=== PATIENT | female | born 1945 | race American Indian/Alaskan Native ===

== ENCOUNTER 2018-07-11 06:42 | Day surgery (SDC) | payer MEDICARE ==
[~2018-07-11] VITALS: Ht 167.6 cm; Wt 69.2 kg
[~2018-07-11 06:42] MED LIST: ALLO100 PO; BUPR150ER PO; CARI350 PO; CLON1 PO; DILT120 PO; FEXO60 PO; LEVSOD112 PO; LEVSOD88 PO; LORA.5 PO; LOSA50 PO; METO100 PO; METO50 PO; MONT10T PO; OMEP20ER PO; PROP10 PO; PROP60 PO; TOLT4 PO; TRAM50 PO
[2018-07-11] MEDS ORDERED: ASPI325 (07:18)
[2018-07-11] MEDS ORDERED: ASPI81CH (07:18)
== END 2018-07-11 08:37 | disposition home or self-care (01) ==
LOC: ORSCSDS 06:42
PROVIDERS: Ophthalmology
PROC: 08RJ3JZ Replacement of Right Lens with Synthetic Substitute, Percutaneous Approach (ICD-10-PCS; principal; 2018-07-11 07:30)
DX: H25.11 Age-related nuclear cataract, right eye (principal); I10 Essential (primary) hypertension; E03.9 Hypothyroidism, unspecified; K21.9 Gastro-esophageal reflux disease without esophagitis; Z79.899 Other long term (current) drug therapy
CPT/HCPCS: J2001; J2250; J3010; J3301; J7120; V2632

== ENCOUNTER 2019-06-17 07:28 | Emergency (ER) | payer MEDICARE, OTHER ==
[~2019-06-17] VITALS: Ht 167.6 cm; Wt 63.5 kg
[~2019-06-17 07:28] MED LIST changes: +ASPI325; +ASPI81CH
[2019-06-17] MEDS ORDERED: PLAVIX75 MG (07:43)
[2019-06-17] MEDS ORDERED: Inderal60 MG PO (07:44)
[2019-06-17] MEDS ORDERED: Ultram50 MG PO (10:13)
== END 2019-06-17 10:48 | disposition home or self-care (01) ==
LOC: ER 07:28
DX: G43.909 Migraine, unspecified, not intractable, without status migrainosus (principal); I10 Essential (primary) hypertension; E03.9 Hypothyroidism, unspecified; Z86.73 Personal history of transient ischemic attack (TIA), and cerebral infarction without residual deficits; Z88.8 Allergy status to other drugs, medicaments and biological substances; Z91.018 Allergy to other foods; Z88.0 Allergy status to penicillin; Z88.5 Allergy status to narcotic agent; Z88.2 Allergy status to sulfonamides; Z79.899 Other long term (current) drug therapy; Z79.82 Long term (current) use of aspirin; Z79.891 Long term (current) use of opiate analgesic
CPT/HCPCS: 96361; 96374; 96375; 99283-25; J1100; J1885; J2405; J3010; J7030

== ENCOUNTER 2020-04-14 14:49 | Emergency (ER) | payer MEDICARE ==
[~2020-04-14] VITALS: Ht 167.6 cm; Wt 47.6 kg
[~2020-04-14 14:49] MED LIST changes: +Inderal60 MG PO; +PLAVIX75 MG; +Ultram50 MG PO
[2020-04-14] MEDS ORDERED: TOPI25 PO (15:54)
[2020-04-14] MEDS ORDERED: LORA.5 PO (15:55)
[2020-04-14] MEDS ORDERED: BUPROPION HCL200 M1 PO (15:56)
[2020-04-14] MEDS ORDERED: Oxcarbazepine150 MG PO (15:56)
[2020-04-14] MEDS ORDERED: TOLTERODINE TART2 MG PO (15:56)
[2020-04-14] MEDS ORDERED: OMEPRAZOLE MAGN20 M1 PO (15:57)
[2020-04-14] MEDS ORDERED: IBUP400 PO (16:23)
== END 2020-04-14 17:16 | disposition home or self-care (01) ==
LOC: ER 14:49
DX: R51 Headache (principal); M54.2 Cervicalgia; I10 Essential (primary) hypertension; E03.9 Hypothyroidism, unspecified; Z88.8 Allergy status to other drugs, medicaments and biological substances; Z88.0 Allergy status to penicillin; Z88.5 Allergy status to narcotic agent; Z91.041 Radiographic dye allergy status; Z88.2 Allergy status to sulfonamides; Z79.82 Long term (current) use of aspirin; Z79.899 Other long term (current) drug therapy; Z79.02 Long term (current) use of antithrombotics/antiplatelets; Z86.73 Personal history of transient ischemic attack (TIA), and cerebral infarction without residual deficits; Z87.891 Personal history of nicotine dependence
CPT/HCPCS: 36415; 70450; 96374; 96375; 99284-25; J0780; J1885; J7030

== ENCOUNTER → 2020-08-10 | Outpatient (CLI) | payer MEDICARE ==
[~2020-08-10] MED LIST changes: +ALLOPURINOL100 M1 PO; +Aspir 8181 MG PO; +BUPROPION HCL200 M1 PO; +BUSP5 PO; +CARV3.125 PO; +DILTIAZEM 24HR180 M5 PO; +EUTHYROX75 MC1 PO; +FAMO10 PO; +FURO20 PO; +Flovent 44 mc10.6 GM INH; +IBUP400 PO; +LOSA25 PO; +OMEPRAZOLE MAGN20 M1 PO; +Oxcarbazepine150 MG PO; +PLAVIX75 MG PO; +POTA20LUD PO; +SPIR25 PO; +TOLTERODINE TART2 MG PO; +TOPI25 PO
[2020-08-10 19:23] LABS: Appearance, Urine Cloudy (Clear); Bilirubin, Urine Neg (Neg); Blood, Urine Neg (Neg); Color, Urine Yellow (P-Yellow); Glucose Qualitative, Urine Neg (Neg); Ketones, Urine 1+ (Neg); Leukocyte Esterase, Urine 1+ (Neg); Nitrite, Urine Pos (Neg); Protein, Urine Neg (Neg); Urobilinogen, Urine NORM (Normal)
[2020-08-10 19:45] LABS: Bacteria Many /hpf; Squamous Epithelial Cells Few /hpf (Few)
== END | disposition home or self-care (01) ==
LOC: LAB SHORT 19:10 → LAB 19:10
PROVIDERS: Family Medicine
DX: R62.7 Adult failure to thrive (principal); R63.5 Abnormal weight gain; K08.89 Other specified disorders of teeth and supporting structures
CPT/HCPCS: 81001; 87077; 87086; 87186

== ENCOUNTER → 2020-08-18 | Outpatient (CLI) | payer MEDICARE, OTHER ==
[2020-08-18 17:32] LABS: Alanine Aminotransfer (ALT/SGP 14 U/L (12-78); Albumin, Blood 3.2 g/dL (3.4-5.0); Albumin/Globulin Ratio 1.1 (0.8-1.8); Alk Phos 72 U/L (50-136); Anion Gap 5 mmol/L (6-16); Aspartate Aminotrans (AST/SGOT 11 U/L (12-37); Bilirubin, Total 0.3 mg/dL (0.1-1.0); Blood Urea Nitrogen 14 mg/dL (8-24); Bun/Creatinine Ratio 21.2 (12.0-20.0); CO2, Blood 26 mmol/L (21-32); Calcium, Blood 8.5 mg/dL (8.5-10.1); Chloride, Blood 111 mmol/L (98-108); Creatinine, Blood 0.66 mg/dL (0.40-1.00); Globulin, Blood 2.8 g/dL (2.2-4.0); Glomerular Filtration Rate >60 (60-); Glucose, Blood 98 mg/dL (70-99); Potassium, Blood 4.2 mmol/L (3.5-5.5); Sodium, Blood 142 mmol/L (136-145)
== END | disposition home or self-care (01) ==
LOC: LAB 14:00 → LAB SHORT 14:00
PROVIDERS: Family Medicine
DX: R62.7 Adult failure to thrive (principal); R63.5 Abnormal weight gain; K08.9 Disorder of teeth and supporting structures, unspecified
CPT/HCPCS: 80053

== ENCOUNTER 2020-12-01 16:15 | Inpatient (IN) | payer MEDICARE, SELFPAY ==
[~2020-12-01] VITALS: Ht 167.6 cm; Wt 44.0 kg
[~2020-12-01 16:15] MED LIST changes: -ALLOPURINOL100 M1 PO; -Aspir 8181 MG PO; -BUSP5 PO; -CARV3.125 PO; -DILTIAZEM 24HR180 M5 PO; -EUTHYROX75 MC1 PO; -FAMO10 PO; -FURO20 PO; -Flovent 44 mc10.6 GM INH; -LOSA25 PO; -PLAVIX75 MG PO; -POTA20LUD PO; -SPIR25 PO
[2020-12-01 18:15] LABS: BASOPHILS ABSOLUTE AUTO 0.04 K/mm3 (0.00-0.23); BASOPHILS PERCENT AUTO 1 % (0-2); EOSINOPHILS ABSOLUTE AUTO 0.12 K/mm3 (0.00-0.68); EOSINOPHILS PERCENT AUTO 2 % (0-6); Hemoglobin 13.6 g/dL (11.5-16.0); IMMATURE GRAN ABSOLUTE AUTO 0.02 K/mm3 (0.00-0.10); IMMATURE GRAN PERCENT AUTO 0 % (0-1); LYMPHOCYTES ABSOLUTE AUTO 2.43 K/mm3 (0.84-5.20); LYMPHOCYTES PERCENT AUTO 35 % (21-46); MONOCYTES ABSOLUTE AUTO 0.55 K/mm3 (0.16-1.47); MONOCYTES PERCENT AUTO 8 % (4-13); Mean Corpuscular HGB 33.3 pg (26.0-34.0); Mean Corpuscular HGB Conc 35.8 g/dL (31.5-36.5); Mean Corpuscular Volume 93 fL (80-100); Mean Platelet Volume 10.6 fL (9.1-12.4); NEUTROPHILS ABSOLUTE AUTO 3.88 K/mm3 (1.96-9.15); NEUTROPHILS PERCENT AUTO 55 % (41-73); Platelet Count 242 K/mm3 (150-400); RDW Coefficient Variation 13.3 % (11.7-14.2); RDW Standard Deviation 45.4 fL (35.1-46.3); Red Blood Cell Count 4.08 M/mm3 (3.80-5.20); White Blood Cell Count 7.04 K/mm3 (4.00-11.30)
[2020-12-01 18:44] LABS: Alanine Aminotransfer (ALT/SGP 13 U/L (12-78); Albumin, Blood 3.7 g/dL (3.4-5.0); Albumin/Globulin Ratio 1.1 (0.8-1.8); Alk Phos 87 U/L (50-136); Anion Gap 6 mmol/L (6-16); Aspartate Aminotrans (AST/SGOT 14 U/L (12-37); Bilirubin, Total 0.6 mg/dL (0.1-1.0); Blood Urea Nitrogen 14 mg/dL (8-24); Bun/Creatinine Ratio 14.6 (12.0-20.0); CO2, Blood 23 mmol/L (21-32); Chloride, Blood 111 mmol/L (98-108); Creatinine, Blood 0.96 mg/dL (0.40-1.00); Globulin, Blood 3.4 g/dL (2.2-4.0); Glomerular Filtration Rate >60 (60-); Glucose, Blood 104 mg/dL (70-99); Potassium, Blood 3.8 mmol/L (3.5-5.5); Sodium, Blood 140 mmol/L (136-145); Total Protein, Blood 7.1 g/dL (6.4-8.2); Troponin I 0.038 ng/mL (0.000-0.040)
[2020-12-01] MEDS ORDERED: TOPI25 PO ×2 (21:25)
[2020-12-01] MEDS ORDERED: PLAVIX75 MG PO (21:26)
[2020-12-01] MEDS ORDERED: Flovent 44 mc10.6 GM INH (21:26)
[2020-12-01] MEDS ORDERED: MONT10T PO (21:26)
[2020-12-01] MEDS ORDERED: DILTIAZEM 24HR180 M5 PO (21:27)
[2020-12-01] MEDS ORDERED: ALLOPURINOL100 M1 PO (21:27)
[2020-12-01] MEDS ORDERED: POTA20LUD PO (21:29)
[2020-12-01] MEDS ORDERED: EUTHYROX75 MC1 PO (21:47)
[2020-12-02 05:39] LABS: Bun/Creatinine Ratio 14.9 (12.0-20.0); Calcium, Blood 8.4 mg/dL (8.5-10.1); Creatinine, Blood 1.01 mg/dL (0.40-1.00); Potassium, Blood 3.2 mmol/L (3.5-5.5)
--- NOTE | 2020-12-02 06:27 | NUR ---
Rn summary: Patient was admitted to room 336 via stretcher at 2248. Pt was able to walk from stretcher to bed with SBA. Patient skin is free of breakdown. Pt is alert and oriented x3. Pt was able to review meds and give health history. Patient lung sounds are clear, no crackles heard. Heart tones a little tachy. Patient has no edema. Pt was hungry and snack was given. Pt did receive tylenol 650 mg for headache and ativan 0.5 mg for anxiety with good relief and has rested well. Bed alarm is on, Patient did get up without calling to BR x2, then started calling due to alarm going off. Call light remains in reach. Will continue to monitor.
[2020-12-02 07:48] LABS: Troponin I 0.048 ng/mL (0.000-0.040)
--- NOTE | 2020-12-02 11:08 | NUR ---
Echocardiogram performed.
--- NOTE | 2020-12-02 13:24 | NUR ---
SOB THE PT REPORTED THAT SHE DID'NT FEEL GOOD AFTER GETTING UP TO GO TO THE BATHROOM, THE PT DENIED NAUSEA BUT FELT SOB, O2 WAS APPLIED @ 2L/MIN
--- NOTE | 2020-12-02 18:11 | NUR ---
PT IS A/OX3, PLEASANT AND COOPERATIVE IN THE AM, THE PT IS UP IND TO THE BATHROOM APPEARS STEADY ON HER FEET, THIS AFTERNOON THE PT REPORTED THAT SHE WASN'T FEELING WELL AFTER GETTING UP TO THE BATHROOM, THE PT DENIED NAUSEA AT THAT TIME AND O2 WAS APPLIED, THE PT REPORTED THAT IT HELPED. LATER THE PT REPORTED THAT SHE FELT OVERLY ANXIOUS AND ASKED FOR ATIVAN FOR ANXIETY SHE TAKES AT HOME, DR. RESTREPO WAS CALLED AND AN ORDER WAS GIVEN FOR ATIVAN. WHILE THE PT WAS GETTING HER INJECTION FOR THE RESTING PORTION OF HER STRESS TEST THE PT BECAME NAUSEATED AND DR. SINGLETARY WAS CALLED AND AN ORDER FOR ZOFRAN WAS GIVEN, THE PT REPORTS FEELING A LITTLE BETTER, HOWEVER STILL HAS NO APPETITE, THE PTS DAUGHTER IS AT THE BEDSIDE, CALL LIGHT IN REACH, WILL CONTINUE TO MONITOR AND ASSESS FOR CHANGES
[2020-12-03 06:23] LABS: Anion Gap 7 mmol/L (6-16); Blood Urea Nitrogen 17 mg/dL (8-24); Bun/Creatinine Ratio 14.8 (12.0-20.0); CHOL/HDL RATIO 4.7; CO2, Blood 23 mmol/L (21-32); Calcium, Blood 8.9 mg/dL (8.5-10.1); Chloride, Blood 109 mmol/L (98-108); Cholesterol 159 mg/dL (50-200); Creatinine, Blood 1.15 mg/dL (0.40-1.00); Glomerular Filtration Rate 49 (60-); Glucose, Blood 106 mg/dL (70-99); HDL Cholesterol 34 mg/dL (>39); LDL/HDL RATIO 3.2; Low Density Lipoprotein Chol 109 mg/dL (0-110); Potassium, Blood 4.1 mmol/L (3.5-5.5); Sodium, Blood 139 mmol/L (136-145); Triglycerides 80 mg/dL (30-160); Very Low Density Lipoprot Chol 16 mg/dL (6-32)
--- NOTE | 2020-12-03 06:38 | NUR ---
SHIFT SUMMARY- PT. A&O, INDEP IN ROOM. NO COMPLAINTS DURING THE NIGHT. THIS AM REPORTED HAVING CARMONA, MEDICATED PER EMAR. PT. NPO FOR 2ND PART OF STRESS TODAY. NO OTHER NEEDS DURING THE NIGHT. ASLEEP MOST OF THE NIGHT, NO APPARENT DISTRESS NOTED. CALL LIGHT WITHIN REACH AND SIDE RAILS UPX2. WILL CONT TO MONITOR.
--- NOTE | 2020-12-03 15:30 | NUR ---
Palliative Care referral and status report received from [facility] charged RN. Visit made to for advanced care planning, goals of care and support to pt in light of new diagnoses of severe late stage acute CHF. Pt has PMH of CAD with a 1VCABG in 1996. She reports no s/s or cardiac issues during the past 20+ years since CABG. She presented to the ER with 2-3 week hx of increased weak- ness, fatigue and sob. Echo demonstrated current EF of 20-25%. Her previous echo, done in 2012 showed EF of 65%. Pt states her sob is much improved since admission and she is currently minimally dyspnic on RA. She is very thin and frail appearing but does not appear older than her age of 75. She tells me about a daughter with END stage heart failure, recommended for hospice two years ago, due to "drug use and lifestyle choices" per pt. Pt was tearful when talking about her orlin. Magaly lives with a different orlin, who can help her at home. She asked questions about her CHF and "how bad is it". I spoke to her about her EF, what normal looks like, what can be done to manage s/s and improve quality of life. She was receptive to reading about CHF and also advanced care planning and I brought her literature on both to review tonight and discuss further tomorrow. Pt is a DNR so I did not discuss code status specifically with her. We did discuss hospice briefly as an option in the future, depending on her goals of care. Plan to f/u with Magaly in the am for a supportive and listening visit. Will call her orlin to answer her questions also if she would like me to.
--- NOTE | 2020-12-03 15:59 | NUR ---
Patient is immediately shares about her current medical issues and mentions about the stressors in her life, She then talks at length about what those stressors. She shares about her family unit complications, her fears and about her monica in [employer]. I normalize her experience and provide therapeutic listening and a calming presence. I will continue to remain available to patient and family.
--- NOTE | 2020-12-03 17:49 | NUR ---
PT IS A/OX4, SLOW TO RESPOND AT TIMES. THE PT APPEARS TO BE BREATHING EASIY AT REST SOB WITH EXCERTION, THE PT HAD THE SECOND PORTION OF HER STRESS TODAY, PT TOLERATED IT WELL, THE PT WAS NAUSEATED THIS AM AND WAS GIVEN ZOFRAN, THE PT REPORTED HEARTBURN THIS AFTERNOON DR. SINGLETARY WAS CALLED AND NEW ORDER FOR PEPCID WAS GIVEN, THE PT WAS MEDICATED FOR CARMONA WITH TYLENOL, THE PTS DAUGHTER IS AT THE BEDSIDE, PALLITATIVE CARE RN CONSULTED WITH THE PT THIS AFTERNOON, CALL LIGHT IN REACH, WILL CONTINUE TO MONITOR AND ASSESS FOR CHANGES
--- NOTE | 2020-12-04 04:31 | NUR ---
C[employer]CI[employer]OR [employer]NCIL SUMMARY NO ACUTE CHANGES THIS SHIFT. PT AAOX4 AND PLEASANT. DENIES SOB OR CP. PT A BIT ANXIOUS AT TIMES, GIVEN 0.5 MG ATIVAN AT BEDTIME. PT HAS SLEPT THROUGH MOST OF THE NIGHT. VSS, WILL CONTINUE TO MONITOR.
[2020-12-04 05:21] LABS: BASOPHILS ABSOLUTE AUTO 0.04 K/mm3 (0.00-0.23); BASOPHILS PERCENT AUTO 1 % (0-2); EOSINOPHILS ABSOLUTE AUTO 0.15 K/mm3 (0.00-0.68); EOSINOPHILS PERCENT AUTO 2 % (0-6); Hematocrit 37.7 % (33.0-51.0); Hemoglobin 13.2 g/dL (11.5-16.0); IMMATURE GRAN ABSOLUTE AUTO 0.02 K/mm3 (0.00-0.10); IMMATURE GRAN PERCENT AUTO 0 % (0-1); LYMPHOCYTES ABSOLUTE AUTO 1.59 K/mm3 (0.84-5.20); LYMPHOCYTES PERCENT AUTO 25 % (21-46); MONOCYTES ABSOLUTE AUTO 0.38 K/mm3 (0.16-1.47); MONOCYTES PERCENT AUTO 6 % (4-13); Mean Corpuscular HGB 33.1 pg (26.0-34.0); Mean Corpuscular Volume 95 fL (80-100); Mean Platelet Volume 10.8 fL (9.1-12.4); NEUTROPHILS ABSOLUTE AUTO 4.15 K/mm3 (1.96-9.15); NEUTROPHILS PERCENT AUTO 66 % (41-73); Platelet Count 230 K/mm3 (150-400); RDW Coefficient Variation 13.1 % (11.7-14.2); RDW Standard Deviation 45.3 fL (35.1-46.3); Red Blood Cell Count 3.99 M/mm3 (3.80-5.20); White Blood Cell Count 6.33 K/mm3 (4.00-11.30)
[2020-12-04 05:39] LABS: Bun/Creatinine Ratio 13.9 (12.0-20.0); Calcium, Blood 8.7 mg/dL (8.5-10.1); Creatinine, Blood 1.15 mg/dL (0.40-1.00); Potassium, Blood 3.7 mmol/L (3.5-5.5)
--- NOTE | 2020-12-04 13:18 | NUR ---
[facility] visit to f/u on CHF and advanced care planning education yesterday. Pt was just getting ready to eat her lunch that RN had set up for her. She states she has minimal appetite. She verbalized disappointment with not going home today. I asked her if she would want to return to the hospital again with increases s/s or illness in the future and she said no. "I want to stay home, there are things I need to get done". We revisited our conversation about supportive services at home and pt stated she wanted HH for help. I spoke to her about HH criteria for services and Hospice again, per Dr Hawley's request yesterday. Pt was tearful at times, especially when talking about her orlin, Kacy. She stated, "I think she's having a harder time with this than I am". I offered to call pt's daughter and encouraged open communication. Pt states her daughter has been very quiet, not communicative and stated, "It is what it is", to pt, which upset her. Pt asked if she could keep the materials I provided to her yesterday. I told her they were hers to keep and share with family if she wanted. I wrote my name and number inside the booklet for her or her orlin to call with questions or wanting to review/talk about anything. Pt expressed hope that she would get to go home tomorrow. I planned to f/u with her on Monday for support if she remained hospitalized. Wet Machine Tender has been visiting also. I case conferenced with pt's RN after my visit to review my conversation with her.
--- NOTE | 2020-12-04 16:54 | NUR ---
PT IS A&O X4, IS SOME OF THE TIME SLOW TO RESPOND. SHE IS INDEPENDENT IN HER ROOM, WILL CALL TO MAKE HER NEEDS MET. SHE HAS COMPLAINTS OF WEAKNESS AFTER WALKING TO THE BATHROOM. THE PT CAN BECOME ANXIOUS AT TIMES. SHE IS CURRENTLY ON 2 L OF 02 VIA NC WITH HER SATS STABLE ABOVE 90% THE PT DOES NOT HAVE MUCH OF AN APPETITE BUT WILL EAT WHEN HER DAUGHTER BRINGS HER FOOD.
--- NOTE | 2020-12-04 18:05 | NUR ---
SN I REVIEWED AND AGREE WITH SN CARTER'S AM ASSESMENT AND HAVE REVIEWED HER CHART DOCUMENTATIONS
--- NOTE | 2020-12-04 19:20 | NUR ---
ASSUMED CARE RECEIVED REPORT FROM SULAIMAN DALE. PT RESTING, IN NO ACUTE DISTRESS. C/O CARMONA, WILL NOTIFY PROVIDER. NO OTHER SIGNS OF DISTRESS NOTED. NO ACUTE NEEDS ASSESSED. CALL LIGHT, POSSESSIONS IN REACH.
--- NOTE | 2020-12-04 21:31 | NUR ---
SPOKE TO DR. KITCHEN REGARDING PT'S CARMONA UNRELIEVED BY ORDERED TYLENOL. ORDERS RECEIVED AND ENTERED INTO [employer] BY THIS RN.
[2020-12-05 05:28] LABS: Albumin, Blood 3.4 g/dL (3.4-5.0); Anion Gap 10 mmol/L (6-16); Blood Urea Nitrogen 21 mg/dL (8-24); Bun/Creatinine Ratio 13.4 (12.0-20.0); CO2, Blood 22 mmol/L (21-32); Calcium, Blood 8.7 mg/dL (8.5-10.1); Chloride, Blood 103 mmol/L (98-108); Creatinine, Blood 1.57 mg/dL (0.40-1.00); Glomerular Filtration Rate 34 (60-); Glucose, Blood 91 mg/dL (70-99); Phosphorus, Blood 4.1 mg/dL (2.5-4.9); Potassium, Blood 3.9 mmol/L (3.5-5.5); Sodium, Blood 135 mmol/L (136-145)
--- NOTE | 2020-12-05 07:00 | NUR ---
INSTRUMENTATION INSTRUCTOR SUMMARY PT ASLEEP, IN NO ACUTE DISTRESS. VS REVIEWED,WNL. PT UP TO BATHROOM WITH ONE ASSIST D/T C/O DIZZINESS. CONTINUES TO USE 2L/NC FOR SOB ON EXERTION. O2 SATS WNL. PT REPORTED "HAVING A LOT ON HER MIND" WHEN ASKED ABOUT THE CAUSE OF HER ANXIETY. PROVIDED LISTENING EAR AND ENCOURAGED PT TO EXPRESS FEELINGS; PT TEARFUL, REPORTED TIGHTNESS IN CHEST/THROAT. MEDICATED PER EMAR FOR ANXIETY, WITH EFFECTIVE RESULTS; PT ABLE TO SLEEP. HAs MANAGED WITH MEDS PER EMAR, WITH GOOD RELIEF. NO OTHER ACUTE CHANGES IN CONDITION TO REPORT OVERNIGHT. CALL LIGHT, POSSESSIONS IN REACH, BED IN LOW POSITION WITH ALARMS ON. REPORT GIVEN TO SULAIMAN CHAVEZ.
--- NOTE | 2020-12-05 18:22 | NUR ---
SHIFT SUMMARY: NO ACUTE EVENTS. TELEMETRY D/C'D. HAS FLAT AFFECT AND WITHDRAWN DEMEANOR, STML. VERY POOR APPETITE, ATE VERY LITTLE TODAY. WEARING O2 @ 2 L/MIN NC PRN FOR SOB, DID NOT WEAR TODAY AFTER GETTING UP THIS MORNING. VERY UNSTEADY GAIT. CACHECTIC, BUT SKIN INTACT. DAUGHTER DID NOT VISIT TODAY D/T MIGRAINE. POSSIBLE D/C TOMORROW.
--- NOTE | 2020-12-06 06:33 | NUR ---
SUMMARY PT MINIMALLY INTERACTING WITH STAFF TONIGHT.IRRITABLE AT TIMES.NOT USING CALL LILGHT FOR BSC ASSIST.BED ALARM EFFECTIVE.
[2020-12-06 06:57] LABS: Bun/Creatinine Ratio 15.5 (12.0-20.0); Calcium, Blood 8.7 mg/dL (8.5-10.1); Creatinine, Blood 1.55 mg/dL (0.40-1.00); Potassium, Blood 3.6 mmol/L (3.5-5.5)
[2020-12-06] MEDS ORDERED: Aspir 8181 MG PO (12:04)
[2020-12-06] MEDS ORDERED: BUSP5 PO (12:04)
[2020-12-06] MEDS ORDERED: LOSA25 PO (12:06)
[2020-12-06] MEDS ORDERED: FAMO10 PO (12:06)
[2020-12-06] MEDS ORDERED: FURO20 PO (12:07)
[2020-12-06] MEDS ORDERED: METO50 PO (12:07)
[2020-12-06] MEDS ORDERED: SPIR25 PO (12:08)
--- NOTE | 2020-12-06 15:26 | NUR ---
1505 PT TO DISCHARGE HOME WITH DAUGHTER. NURSE WENT OVER DC INSTRUCTIONS AND EDUCATION PT AND DAUGHTER REGARDING MEDS AND BP MONITORING. PT DRESSED AND PACKED BY DAUGHTER AND TAKEN DOWN BY STAFF IN . MEDS FAXED TO PHARMACY OF CHOICE.
== END 2020-12-06 15:19 | disposition home or self-care (01) | DRG 291 ==
LOC: ER 16:15 → MEDS 21:31
PROVIDERS: Internal Medicine; Physician Assistant; ADMIT Family Medicine
DX: I11.0 Hypertensive heart disease with heart failure (principal); E43 Unspecified severe protein-calorie malnutrition; I50.21 Acute systolic (congestive) heart failure; Z68.1 Body mass index [BMI] 19.9 or less, adult; G43.909 Migraine, unspecified, not intractable, without status migrainosus; Z66 Do not resuscitate; I25.10 Atherosclerotic heart disease of native coronary artery without angina pectoris; K21.9 Gastro-esophageal reflux disease without esophagitis; F41.9 Anxiety disorder, unspecified; F32.9 Major depressive disorder, single episode, unspecified; I51.81 Takotsubo syndrome; M10.9 Gout, unspecified; E03.9 Hypothyroidism, unspecified; I27.20 Pulmonary hypertension, unspecified; Z90.711 Acquired absence of uterus with remaining cervical stump; Z90.49 Acquired absence of other specified parts of digestive tract; Z86.73 Personal history of transient ischemic attack (TIA), and cerebral infarction without residual deficits; Z88.6 Allergy status to analgesic agent; Z88.8 Allergy status to other drugs, medicaments and biological substances; Z88.1 Allergy status to other antibiotic agents; Z91.041 Radiographic dye allergy status; Z88.0 Allergy status to penicillin; Z88.2 Allergy status to sulfonamides; Z91.018 Allergy to other foods; Z98.890 Other specified postprocedural states; Z95.1 Presence of aortocoronary bypass graft; Z98.42 Cataract extraction status, left eye; Z98.41 Cataract extraction status, right eye; Z87.891 Personal history of nicotine dependence; Z79.899 Other long term (current) drug therapy; Z79.51 Long term (current) use of inhaled steroids; Z79.02 Long term (current) use of antithrombotics/antiplatelets
CPT/HCPCS: 36415; 71046; 78452; 80048; 80053; 80061; 80069; 83880; 84484; 85025; 93005; 93010; 93017; 93306; 94640; 94760; 96374; 99285-25; A9270; A9500; J0280; J1940; J2405; J2785

== ENCOUNTER 2020-12-30 10:30 | Day surgery (SDC) | payer MEDICARE, OTHER ==
[~2020-12-30] VITALS: Ht 167.6 cm; Wt 94.0 kg
[~2020-12-30 10:30] MED LIST changes: +ALLOPURINOL100 M1 PO; +Aspir 8181 MG PO; +BUSP5 PO; +DILTIAZEM 24HR180 M5 PO; +EUTHYROX75 MC1 PO; +FAMO10 PO; +FURO20 PO; +Flovent 44 mc10.6 GM INH; +LOSA25 PO; +PLAVIX75 MG PO; +POTA20LUD PO; +SPIR25 PO
--- NOTE | 2020-12-30 13:19 | NUR ---
PATIENT RETURNED FROM THE [facility] VIA BED, HOB FLAT. MANUAL PRESSURE BEING HELD TO THE RIGHT GROIN FOR A SMALL OZZE NOTED. RIGHT GROIN HAS RFA CLOSED WITH ANGIOSEAL AND RFV CLOSED WITH PERCLOSE. MONITOR APPLIED AND SIDE RAILS UP X 2, CALL LIGHT IN REACH. SBAR RECEIVED FROM SULAIMAN ELLINGTON AT THE BEDSIDE. BEAR HUGGER IN USE, PATIENT COOL. ENCOURAGED PATIENT TO RELAX ARMS AND LEGS, VERY TENSE. REASSURAMCE GIVEN.
--- NOTE | 2020-12-30 13:35 | NUR ---
patient on bed de leon. right groin site oozing blood on to gary hemostasis patch. pressure held over site while on bed de leon. marked size of blood spot on patch.
--- NOTE | 2020-12-30 14:20 | NUR ---
oozing has saturated the gary patch. new patch applied. Dr Brewer here to hold pressure to groin site
--- NOTE | 2020-12-30 14:47 | NUR ---
Dr Maki held presure over right groin site for 10 minutes and requseted that it be held another 10 minutes. oozing on to gary hemostasis patch marked. PT and TP rahat (2).
--- NOTE | 2020-12-30 15:22 | NUR ---
MONICA HEMOSTASIS PATCH REPLACED WITH A NEW ONE AND A LIGHT PRESSURE DRESSING. PATIENT VOIDED X1. PEDAL PUSES (2)
[2020-12-30] MEDS ORDERED: LOSA25 PO (15:25)
[2020-12-30] MEDS ORDERED: CARV3.125 PO (15:26)
--- NOTE | 2020-12-30 15:54 | NUR ---
DR. EUBANKS AT THE BEDSIDE FOR CONTINUED SKIN OOZE OF THE RIGHT GROIN (ARTERIAL). ACT CHECKED AND 147. PROTAMINE 10 MG PIV GIVEN ORDERED BY DR. EUBANKS. MANUAL PRESSURE HELD TO THE SITE. DR. EUBANKS ALSO INJECTED LIDOCAINE 1% TO THE RIGHT GROIN SITE AND CONTINUES TO HOLD MANUAL PRESSURE.
--- NOTE | 2020-12-30 16:00 | NUR ---
Dr Sharp continuing to hold pressure over right groin site. 10mg iv given per his order.
--- NOTE | 2020-12-30 16:10 | NUR ---
Dr Sharp continuing to hold pressure. Dr Sharp gave lidocaine 1% to right groin site for patient comfort. 5mg IV protomine given per his order. second ACT drawn.
--- NOTE | 2020-12-30 16:15 | NUR ---
Dr Sharp ordered 25mcg of Fentanyl iv for patient comfort, and given. ACT 109.
--- NOTE | 2020-12-30 16:40 | NUR ---
Dr Sharp, did an untrasound of right groin vein and artery. Dr sharp placed Dionisio absorbale hemostasis powder over the site. hemostasis was achieved and [place] patch placed. Sadia, the patients daughter was called and a full report and discharge instructions and precautions given,.
--- NOTE | 2020-12-30 17:20 | NUR ---
right groin site soft and nontender. dressing dry and intact.
--- NOTE | 2020-12-30 18:08 | NUR ---
dR Swanson IN TO SEE JANY AT 17:30. STATES THAT SHE IS ABLE TO BE DISCHARGED. PATIENT UP TO RESROOM. TOLERATED WELL. IV SITE DCED WITH CATHETER INTACT. DISCHARGE INSTRUCTIONS AND PRECAUTIONS GIVEN AND ALL QUESTIONS ANSWERED. RIGHT GROIN SITE REMAINS STABLE. DRESSING DRYA ND IN TACT NO BLEEDING AND NO SWELLING. PATIENT DISCHARGED WHEEL CHAIR TO WAITING CAR WITH GIRISH SANDERSON. A FOLLOW UP REPORT ON GROIN STATUS GIVEN TO HER.
== END 2020-12-30 23:52 | disposition home or self-care (01) ==
LOC: MHTC 10:30
DX: I25.118 Atherosclerotic heart disease of native coronary artery with other forms of angina pectoris (principal); I42.8 Other cardiomyopathies; I27.20 Pulmonary hypertension, unspecified; I11.0 Hypertensive heart disease with heart failure; I50.9 Heart failure, unspecified; E78.5 Hyperlipidemia, unspecified; I34.0 Nonrheumatic mitral (valve) insufficiency; R64 Cachexia; Z95.1 Presence of aortocoronary bypass graft; Z88.8 Allergy status to other drugs, medicaments and biological substances; Z88.1 Allergy status to other antibiotic agents; Z88.2 Allergy status to sulfonamides; Z88.0 Allergy status to penicillin; Z91.02 Food additives allergy status; Z88.5 Allergy status to narcotic agent; Z79.82 Long term (current) use of aspirin; Z79.02 Long term (current) use of antithrombotics/antiplatelets; Z87.891 Personal history of nicotine dependence; Z68.1 Body mass index [BMI] 19.9 or less, adult
CPT/HCPCS: 76937; 85347; 93457; 99152; 99153; A9270; C1725; C1760; C1769; C1887; C1894; J1644; J2250; J2720; J3010; J7030; J7040; J7050; Q9967